=== PATIENT | male | born 1945 | race Caucasian/White ===

== ENCOUNTER 2018-05-31 07:34 | Observation (INO) | payer MEDICARE, OTHER ==
[2018-05-30 15:31] LABS: BASOPHILS # (AUTO) 0.1 (0.0-0.1); BASOPHILS % 0.8 % (0.0-1.0); EOSINOPHILS # (AUTO) 0.1 (0.0-0.4); HEMATOCRIT 39.3 % (38.2-49.6); HEMOGLOBIN 12.6 g/dL (14.0-18.0); LYMPHOCYTES # (AUTO) 2.3 (1.0-3.2); LYMPHOCYTES % 28.2 % (18.0-39.1); MEAN CORPUSCULAR HEMOGLOBIN 28.6 pg (28-32); MEAN CORPUSCULAR HGB CONC 32.1 g/dL (31-35); MEAN CORPUSCULAR VOLUME 89.3 fL (81-99); MONOCYTES # (AUTO) 0.9 (0.2-0.8); MONOCYTES % 11.1 % (4.4-11.3); NEUTROPHILS # (AUTO) 4.7 (2.1-6.9); NEUTROPHILS % 58.4 % (38.7-80.0); PLATELET COUNT 256 x10e3/uL (140-360); RED CELL DISTRIBUTION WIDTH 17.6 % (11.7-14.4)
[2018-05-30 15:50] LABS: ALANINE AMINOTRANSFERASE 25 IU/L (0-55); ALBUMIN 3.9 g/dL (3.5-5.0); ALKALINE PHOSPHATASE 109 IU/L (40-150); ANION GAP 14.6 mmol/L (8-16); BLOOD UREA NITROGEN 19 mg/dL (7-26); BUN/CREATININE RATIO 19 (6-25); CALCIUM 9.8 mg/dL (8.4-10.2); CARBON DIOXIDE 29 mmol/L (22-29); CHLORIDE 97 mmol/L (98-107); CREATININE, SERUM 1.01 mg/dL (0.72-1.25); EST GLOMERULAR FILTRATION RATE > 60 ML/MIN (60-); GLUCOSE 98 mg/dL (74-118); POTASSIUM 4.6 mmol/L (3.5-5.1); SODIUM 136 mmol/L (136-145)
[~2018-05-31] VITALS: Ht 177.8 cm; Wt 69.4 kg
[2018-05-31] VITALS (13 sets, daily range): BP systolic 137–183; BP diastolic 59–88
[~2018-05-31 07:34] MED LIST: ADVAIR 100-501 EACH; ALPHAGAN P5 ML OU; AMOXICILLIN875 MG PO; ASPIRIN81 MG PO; CALCIUM CARBONATE PO; CLARINEX5 MG PO; DIGOXIN125 MCG PO; DOCUSATE SODIU100 MG PO; GLAUCOMA EYE DROPS; GUAIFENESIN PO; LORATADINE10 MG PO; LUMIGAN2.5 M1 OU; MECLIZINE HCL12.5 MG PO; METFORMIN HCL500 MG PO; METOPROLOL TART25 MG PO; MUCINEX600 MG PO; OMEPRAZOLE40 MG PO; PRAVASTATIN SOD20 MG PO; SENOKOT8.6 MG PO; THERA-TABS1 EACH PO; TIMOLOL MALEATE10 M1 OU; ULTRAM 50MG50 MG PO
[2018-05-31] MEDS ORDERED: METOPROLOL TART25 MG PO (09:53)
[2018-05-31] MEDS ORDERED: THERA-TABS1 EACH PO (09:53)
[2018-05-31] MEDS ORDERED: ELIQUIS 5 MG TABLET PO (09:53)
[2018-05-31] MEDS ORDERED: LUMIGAN2.5 M1 OP (09:53)
[2018-05-31] MEDS ORDERED: OSCAL PO (09:53)
[2018-05-31] MEDS ORDERED: TOBRADEX EYE O3.5 GM OP (09:53)
[2018-05-31] MEDS ORDERED: LATANOPROST2.5 ML OP (09:53)
[2018-05-31] MEDS ORDERED: TIMOLOL MALEATE10 ML OP (09:53)
[2018-05-31] MEDS ORDERED: BRIMONIDINE TART5 ML OP (09:53)
[2018-05-31] MEDS ORDERED: FENTANYL CITRATE/PF 100MCG/2 ML INJ ONE (11:01)
[2018-05-31] MEDS ORDERED: MIDAZOLAM HCL 2 MG/2 ML VIAL ONE (11:01)
[2018-05-31] MEDS ORDERED: SODIUM CHLORIDE 0.9% 1000ML 1,000 ML ONE (11:02)
[2018-05-31] MEDS ORDERED: IOPAMIDOL 370 MG/ML 200 ML INFUS..BTL INJ ONE (11:02)
[2018-05-31] MEDS ORDERED: LIDOCAINE HCL 2% LOCAL 20 ML VIAL ONE (11:02)
[2018-05-31] MEDS ORDERED: HEPARIN SOD/SOD CHLORIDE 2,000 ML ONE (11:02)
[2018-05-31] MEDS ORDERED: SODIUM CHLORIDE FLUSH 10 ML SYR INJ PRN (15:15)
[2018-05-31] MEDS ORDERED: TRAMADOL HCL 50 MG TAB PO PRN (16:45)
[2018-05-31] MEDS ORDERED: DOCUSATE SODIUM 100 MG CAP PO SCH (16:45)
[2018-05-31] MEDS ORDERED: SENNOSIDES 8.6 MG TAB PO PRN ×2 (16:45)
[2018-05-31] MEDS ORDERED: GUAIFENESIN 600 MG TAB PO PRN ×2 (16:45)
[2018-05-31] MEDS ORDERED: DOCUSATE SODIUM 100 MG CAP PO PRN (16:45)
[2018-05-31] MEDS: BRIMONIDINE TARTRATE (OPTH) 5 ML LIQD OP SCH (17:00)
[2018-05-31] MEDS: APIXABAN 5 MG TABLET PO SCH (17:00)
[2018-05-31] MEDS ORDERED: ELIQUIS 5 MG PO SCH (17:00)
[2018-05-31] MEDS: TIMOLOL MALEATE(OPTHALMIC) 1 EA BTL OP SCH (17:00)
[2018-05-31] MEDS: METOPROLOL TARTRATE 25 MG TAB PO SCH (17:49)
[2018-05-31] MEDS: METFORMIN HCL 500 MG TAB PO SCH (17:49)
[2018-05-31] MEDS: TOBRAMYCIN/DEXAMETHASONE(OPTH) 3.5 GM TUBE OP SCH ×2 (17:50→23:54)
--- NOTE | 2018-05-31 19:09 | Progress Note ---
DATE: May 31, 2018 CARDIOLOGY PROGRESS NOTE INCOMPLETE REPORT - CANCELLED Job#: [id number] EV
[2018-05-31] MEDS: BIMATOPROST(OPTH) 2.5 ML BOTTLE OP SCH (21:42)
[2018-05-31] MEDS: PRAVASTATIN 20 MG TAB PO SCH (21:42)
[2018-05-31] MEDS: LATANOPROST(OPTH) 2.5 ML BTL OP SCH (21:42)
[2018-06-01] VITALS (8 sets, daily range): BP systolic 110–143; BP diastolic 54–66
[2018-06-01 05:20] LABS: BASOPHILS % 0.4 % (0.0-1.0); EOSINOPHILS # (AUTO) 0.1 (0.0-0.4); EOSINOPHILS % 1.3 % (0.0-6.0); HEMATOCRIT 37.3 % (38.2-49.6); HEMOGLOBIN 12.4 g/dL (14.0-18.0); LYMPHOCYTES # (AUTO) 1.6 (1.0-3.2); LYMPHOCYTES % 15.1 % (18.0-39.1); MEAN CORPUSCULAR HEMOGLOBIN 29.1 pg (28-32); MEAN CORPUSCULAR HGB CONC 33.2 g/dL (31-35); MEAN CORPUSCULAR VOLUME 87.6 fL (81-99); MONOCYTES # (AUTO) 0.8 (0.2-0.8); MONOCYTES % 7.2 % (4.4-11.3); NEUTROPHILS # (AUTO) 7.9 (2.1-6.9); NEUTROPHILS % 75.7 % (38.7-80.0); PLATELET COUNT 240 x10e3/uL (140-360); RED BLOOD COUNT 4.26 x10e6/uL (4.3-5.7); RED CELL DISTRIBUTION WIDTH 17.5 % (11.7-14.4)
[2018-06-01 05:37] LABS: ANION GAP 14.5 mmol/L (8-16); BLOOD UREA NITROGEN 17 mg/dL (7-26); BUN/CREATININE RATIO 20 (6-25); CALCIUM 9.1 mg/dL (8.4-10.2); CARBON DIOXIDE 25 mmol/L (22-29); CHLORIDE 103 mmol/L (98-107); CREATININE, SERUM 0.86 mg/dL (0.72-1.25); EST GLOMERULAR FILTRATION RATE > 60 ML/MIN (60-); GLUCOSE 125 mg/dL (74-118); POTASSIUM 4.5 mmol/L (3.5-5.1); SODIUM 138 mmol/L (136-145)
[2018-06-01] MEDS: TOBRAMYCIN/DEXAMETHASONE(OPTH) 3.5 GM TUBE OP SCH ×3 (05:46→18:41)
[2018-06-01] MEDS: APIXABAN 5 MG TABLET PO SCH ×2 (09:00→17:00)
[2018-06-01] MEDS: MULTIVITAMINS/MINERALS TAB PO SCH (09:00)
[2018-06-01] MEDS: BRIMONIDINE TARTRATE (OPTH) 5 ML LIQD OP SCH ×2 (09:00→17:00)
[2018-06-01] MEDS ORDERED: CALCIUM CARBONATE 600 MG PO SCH (09:00)
[2018-06-01] MEDS: DIGOXIN 0.125 MG TAB PO SCH (09:00)
[2018-06-01] MEDS: TIMOLOL MALEATE(OPTHALMIC) 1 EA BTL OP SCH ×2 (09:00→17:00)
[2018-06-01] MEDS ORDERED: OSCAL PO SCH (09:00)
[2018-06-01] MEDS: METOPROLOL TARTRATE 25 MG TAB PO SCH ×2 (09:00→17:00)
[2018-06-01] MEDS: LORATADINE 10 MG TAB PO SCH (09:00)
[2018-06-01] MEDS ORDERED: MULTIVITAMINS THERAPEUTIC PO SCH (09:00)
[2018-06-01] MEDS: OYST-CAL-D 500MG TABLET PO SCH (09:00)
[2018-06-01] MEDS: METFORMIN HCL 500 MG TAB PO SCH ×2 (09:15→17:00)
--- NOTE | 2018-06-01 12:02 | Progress Note ---
DATE: June 01, 2018 CARDIOLOGY PROGRESS NOTE SUBJECTIVE: Patient denies chest pain or shortness of breath. He is n.p.o. for defibrillator placement later this afternoon. OBJECTIVE: VITAL SIGNS: Temperature 97.3 degrees, pulse 68, respiratory rate 18, blood pressure 139/63, oxygen saturation is 95% on room air. GENERAL: Elderly man. No acute distress. Awake and alert. LUNGS: Clear to auscultation bilaterally. No wheezes or crackles. CARDIOVASCULAR: Normal rate, regular rhythm. A 2/6 systolic murmur at the left sternal border. ABDOMEN: Soft, nontender. EXTREMITIES: No edema. CARDIAC MEDICATIONS: 1. Apixaban 5 mg p.o. b.i.d. 2. Metoprolol tartrate 25 p.o. b.i.d. 3. Digoxin 0.125 mg p.o. daily. LABS: WBC 10.49, hemoglobin 12.4, hematocrit 37.3, platelets 240. Sodium 138, potassium 4.5, chloride 103, CO2 25, BUN 17, creatinine 0.86. Telemetry: AV paced. IMPRESSION: 1. Coronary artery disease. 2. Chronic systolic heart failure. 3. Paroxysmal atrial fibrillation. 4. Hypertension. 5. Diabetes mellitus. RECOMMENDATIONS: Continue current cardiac medications. Patient is scheduled for ICD implantation later today. He will need to follow up with Dr. Sotelo as an outpatient for staged revascularization of the RCA. Job#: [id number] IL
[2018-06-01] MEDS ORDERED: MIDAZOLAM HCL 2 MG/2 ML VIAL ONE (16:22)
[2018-06-01] MEDS ORDERED: BACITRACIN 50,000 UNIT VIAL ONE (16:23)
[2018-06-01] MEDS ORDERED: FENTANYL CITRATE/PF 100MCG/2 ML INJ ONE (16:23)
[2018-06-01] MEDS ORDERED: SODIUM CHLORIDE 0.9% 500ML 500 ML ONE (16:24)
[2018-06-01] MEDS ORDERED: LIDOCAINE HCL 2% LOCAL 20 ML VIAL ONE (16:24)
[2018-06-01] MEDS ORDERED: SODIUM CHLORIDE 0.9% 1000ML 2,000 ML ONE (16:24)
[2018-06-01] MEDS ORDERED: VANCOMYCIN 1GM/NS 250 ML 250 ML ONE (16:25)
[2018-06-01] MEDS ORDERED: ACETAMINOPHEN 325 MG TAB PO PRN (18:30)
--- NOTE | 2018-06-01 19:05 | Diagnostic Imaging Report ---
Examination: Single AP view of the chest. COMPARISON: AP chest 11/08/2016 INDICATION: Status post pacemaker placement IMPRESSION: 1. Lines and Tubes: Left upper chest multilead cardiac device with distal tips projecting in the right atrium, right ventricle and coronary sinus 2. Hypoinflated lungs. Minimal bibasilar atelectasis. No consolidation or effusion. 3. Cardiomediastinal silhouette is normal. Mild central venous congestion. 4. No acute bony abnormalities. Marked generalized osteopenia Signed by: Dr. Steven Mayer M.D. on 06/01/2018 7:02 PM
--- NOTE | 2018-06-01 20:45 | Operative Report ---
DATE OF PROCEDURE: May 31, 2018 INDICATIONS: Congestive heart failure. PROCEDURES PERFORMED: 1. Left heart catheterization, selective coronary angiography. 1. Deployment of right groin Mynx closure device. COMPLICATIONS: None. BLOOD LOSS: 5 mL. RECOMMENDATIONS: AICD placement for primary prevention of sudden cardiac , followed by reassessment of ejection fraction. Eventual right coronary artery intervention is indicated. Access obtained in the right femoral artery. A 6-Swedish sheath was placed. Diagnostic coronary angiogram revealed widely patent left main. Left anterior descending, diagonal, obtuse marginal and circumflex arteries with less than 10% luminal stenosis. Proximal right coronary artery 70% stenosis, large vessel, dominant. LV ejection fraction 30%. Right groin repaired using Mynx closure device. Patient was admitted to the hospital for AICD placement. Job#: [id number] EV
[2018-06-01] MEDS: BIMATOPROST(OPTH) 2.5 ML BOTTLE OP SCH (21:52)
[2018-06-01] MEDS: LATANOPROST(OPTH) 2.5 ML BTL OP SCH (21:53)
[2018-06-01] MEDS: PRAVASTATIN 20 MG TAB PO SCH (21:53)
--- NOTE | 2018-06-01 22:10 | Operative Report ---
DATE OF PROCEDURE: 06/01/2018. REFERRING PHYSICIAN: Dr. Sotelo PREPROCEDURE DIAGNOSES 1. 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 2. Congestive heart failure class III. 3. Complete heart block. 4. 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 POSTPROCEDURE DIAGNOSES 1. 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 2. Congestive heart failure class III. 3. Complete heart block. 4. 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 ESTIMATED BLOOD LOSS: 5 mL. COMPLICATIONS: None. PROCEDURES PERFORMED 1. Upgrade to biventricular cardiac defibrillator. 2. Moderate sedation. Moderate conscious sedation was provided under moderate supervision by a sedation trained nurse. Sedation approximate time 45 minutes, Versed and fentanyl. There were no complications. See sedation form for details. DESCRIPTION OF PROCEDURE: After informed consent was obtained. Patient was brought to the electrophysiology laboratory in a fasting, nonsedated state. His chest was prepped and draped in the usual sterile fashion. Moderate sedation, prophylactic antibiotic were given. Lidocaine 1% was used as local anesthetic and a 3-cm skin incision was made in the left subclavicular area over the previous device. Electrocautery and sharp and blunt dissection were used to reach the previous device and this device was freed out of the pocket. Vascular access was obtained x2 in the left axillary vein using the modified Seldinger technique under fluoroscopic guidance. The 6-Omani and 9.5-Omani sheaths were placed. The ventricular lead advanced to the RV apex. R-wave 8.5, pacing 0.9 at 0.5, impedance 653. Coronary sinus was cannulated using AL-2 catheter and Wholey wire. Coronary sinus angiogram demonstrated a good posterolateral branch, successfully cannulated. The lead was advanced there. Patient's threshold was 1.5 at 0.5, impedance 956 without phrenic stimulation. Sheaths were removed from the body. Leads were secured to fascia using 0-silk. Pocket was irrigated with antibiotic solution using the pulse cte teacher. Hemostasis was meticulous. Leads were connected to the device and also, the atrial lead was disconnected from the old device and connected to this new device. The old right ventricular lead was disconnected from the old device and cut and kept in the pocket. Entire new ICD system was placed in the pocket. Pocket was irrigated with antibiotic solution using a pulse cte teacher. The incision was closed using Vicryl and Dermabond. Patient tolerated the procedure well. Procedure was deemed complete. SUMMARY OF HARDWARE IMPLANTED 1. The new defibrillator is Damascus xAd, model #[id number], [id number]. 2. The new right ventricular lead is [employer] CO292, [id number]. 3. The left ventricular lead is [employer] 4674, [id number]. 4. The old atrial lead was used with the new device. IMPRESSIONS 1. Successful upgrade to biventricular cardiac defibrillator via left axillary vein. 2. The old atrial lead was connected to the new device. 3. The old right ventricular pace sense lead was abandoned and kept in the pocket. PLAN 1. Routine postop monitoring on telemetry bed. 2. Chest x-ray. 3. Follow up in 2 weeks. Job#: [id number] CQ MTDMercedes
--- NOTE | 2018-06-01 23:54 | Consultation ---
DATE OF CONSULTATION: June 01, 2018 REFERRING PHYSICIAN: Dr. Sotelo. REASON FOR CONSULTATION: Cardiomyopathy. Consider upgrade to ICD. HISTORY OF PRESENT ILLNESS: This is a 72-year-old gentleman with a history of complete heart block, history of symptomatic bradycardia, status post dual chamber pacemaker placement. He is pacemaker dependent, who has developed cardiomyopathy with ejection fraction 30% to 35%. He underwent a nuclear stress test that demonstrated, ejection fraction of 35%, has been refractory to medical therapy associated to increased shortness of breath with minimal activity. He has congestive heart failure class III, suspecting ventricular paced induced cardiomyopathy, underwent heart catheterization demonstrating no significant indication for any coronary intervention. We were consulted to consider an upgrade. No history of syncope. No palpitations. REVIEW OF SYSTEMS CONSTITUTIONAL: Negative. CARDIOVASCULAR: As per HPI. RESPIRATORY: Negative. GASTROINTESTINAL: Negative. GENITOURINARY: Negative. MUSCULOSKELETAL: Negative. EYES: Negative. ENT: Negative. ALLERGY AND IMMUNOLOGY: Negative. PSYCHIATRIC: Negative. PAST MEDICAL HISTORY: Hypertension, cardiomyopathy, complete heart block. PAST SURGICAL HISTORY: Pacemaker. FAMILY HISTORY: No premature coronary artery disease. SOCIAL HISTORY: No smoking or alcohol. PHYSICAL EXAMINATION VITAL SIGNS: Blood pressure 138/60, pulse 60, respirations 20, O2 sats 98%. GENERAL: No acute distress. HEENT: Moist mucous membranes. CARDIOVASCULAR: Regular. RESPIRATORY: Clear. ABDOMEN: Soft, nontender. MUSCULOSKELETAL: 2+ distal pulses. NEUROLOGICAL: No focal deficits. Normal range of motion in all 4 extremities. SKIN: No lesions. PSYCHIATRIC: Normal thought process. EKG: Atrial paced, ventricular paced. IMPRESSION 1. 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 2. Congestive heart failure class III. 3. Complete heart block. 4. Dual-chamber pacemaker in place. The patient is pacemaker dependent. RECOMMENDATIONS: Discussed with the patient in detail. He will benefit from upgrade to LOG HANDLER; due to the ejection fraction is low, will be LOG HANDLER-D. This procedure was explained in detail. Will benefit from this. The patient voices understanding and wishes to proceed. We will plan for upgrade to biventricular cardiac defibrillator. Thank you for letting us participate in Mr. Fuller's healthcare. Job#: [id number] GE
[2018-06-02] VITALS (7 sets, daily range): BP systolic 113–152; BP diastolic 56–68
[2018-06-02] MEDS: TOBRAMYCIN/DEXAMETHASONE(OPTH) 3.5 GM TUBE OP SCH ×4 (00:45→17:42)
[2018-06-02] MEDS: METFORMIN HCL 500 MG TAB PO SCH ×2 (09:00→09:41)
[2018-06-02] MEDS: OYST-CAL-D 500MG TABLET PO SCH (09:28)
[2018-06-02] MEDS: LORATADINE 10 MG TAB PO SCH (09:41)
[2018-06-02] MEDS: DIGOXIN 0.125 MG TAB PO SCH (09:41)
[2018-06-02] MEDS: MULTIVITAMINS/MINERALS TAB PO SCH (09:41)
[2018-06-02] MEDS: METOPROLOL TARTRATE 25 MG TAB PO SCH ×2 (09:42→17:46)
[2018-06-02] MEDS: APIXABAN 5 MG TABLET PO SCH ×2 (09:42→17:48)
[2018-06-02] MEDS: TIMOLOL MALEATE(OPTHALMIC) 1 EA BTL OP SCH ×2 (09:45→17:45)
[2018-06-02] MEDS: BRIMONIDINE TARTRATE (OPTH) 5 ML LIQD OP SCH ×2 (09:45→17:45)
[2018-06-02 10:29] LABS: ANION GAP 16.4 mmol/L (8-16); BLOOD UREA NITROGEN 22 mg/dL (7-26); BUN/CREATININE RATIO 21 (6-25); CALCIUM 9.4 mg/dL (8.4-10.2); CARBON DIOXIDE 25 mmol/L (22-29); CHLORIDE 100 mmol/L (98-107); CREATININE, SERUM 1.07 mg/dL (0.72-1.25); EST GLOMERULAR FILTRATION RATE > 60 ML/MIN (60-); GLUCOSE 291 mg/dL (74-118); POTASSIUM 4.4 mmol/L (3.5-5.1); SODIUM 137 mmol/L (136-145)
[2018-06-02] MEDS ORDERED: FUROSEMIDE INJ 10 MG/ML 2 ML VIAL IV SCH (10:30)
--- NOTE | 2018-06-02 10:40 | Progress Note ---
DATE: June 02, 2018 CARDIOLOGY PROGRESS NOTE SUBJECTIVE: The patient denies chest pain or shortness of breath. He underwent upgrade to Bi-V ICD by Dr. Garces yesterday. OBJECTIVE VITAL SIGNS: Temperature 95 degrees, pulse 82, respiratory rate 18, blood pressure 152/68, and oxygen saturation 98%. GENERAL: Elderly man. No acute distress. Awake and alert. LUNGS: Clear to auscultation bilaterally. No wheezes or crackles. CARDIOVASCULAR: Normal rate, regular rhythm. A 2/6 systolic murmur at the left sternal border. ABDOMEN: Soft, nontender. EXTREMITIES: No edema. LABS: Pending for today. Chest x-ray: Left upper chest multilead cardiac device with distal tips projecting into the right atrium, right ventricle and coronary sinus; hypoinflated lungs; minimal bibasilar atelectasis. No consolidation or effusion. Cardiomediastinal silhouette is normal. Mild central venous congestion. No acute bony abnormalities. Marked generalized osteopenia. Telemetry: V paced. IMPRESSIONS 1. Coronary artery disease. 2. Chronic systolic heart failure. 3. Paroxysmal atrial fibrillation. 4. Hypertension. 5. Diabetes mellitus. 6. Hypertension. RECOMMENDATIONS: Cardiac catheterization demonstrated 70% stenosis of the proximal RCA. Plan for staged revascularization as an outpatient. Patient is status post bi-V ICD upgrade. Start patient on minocycline. ICD interrogation revealed normal function this morning. Chest x-ray suggests patient is volume overloaded. Given central venous congestion, we will start patient on diuretics and obtain labs. Physical therapy evaluation. He will likely need a brief stay for physical therapy prior to discharge home. Job#: [id number] MTDD
[2018-06-02] MEDS: MINOCYCLINE HCL 50 MG CAP PO SCH ×2 (12:10→21:07)
[2018-06-02] MEDS ORDERED: CEFTRIAXONE SOD 1 GM VIAL IM ONE (17:45)
[2018-06-02] MEDS ORDERED: CEFTRIAXONE SOD 1 GM VIAL IV SCH (17:45)
[2018-06-02] MEDS ORDERED: WATER STERILE 10 ML VIAL INJ NR (18:15)
[2018-06-02] MEDS: PRAVASTATIN 20 MG TAB PO SCH (21:07)
[2018-06-02] MEDS: LATANOPROST(OPTH) 2.5 ML BTL OP SCH (21:07)
[2018-06-02] MEDS: BIMATOPROST(OPTH) 2.5 ML BOTTLE OP SCH (21:07)
[2018-06-03] MEDS ORDERED: FUROSEMIDE INJ 10 MG/ML 4 ML VIAL IV SCH (09:00)
[2018-06-03] MEDS ORDERED: FUROSEMIDE INJ 10 MG/ML 2 ML VIAL IV SCH (09:00)
[2018-06-03] MEDS ORDERED: CEFTRIAXONE SOD 1 GM VIAL IV SCH ×2 (18:00)
--- NOTE | 2018-06-10 15:24 | Discharge Summary ---
DISCHARGE DIAGNOSES 1. [id number] systolic heart failure status post automatic implantable cardioverter-defibrillator placement. 2. Debility. Mr. Fuller was admitted for coronary angiography and congestive heart failure. He had progressive shortness of breath. He underwent coronary angiography with 70% right coronary artery stenosis. He underwent an upgrade of his pacemaker to biventricular AICD placement by Dr. Garces. Subsequently, he was transferred to [facility]. DISCHARGE CONDITION: Stable. DISCHARGE DISPOSITION: Transfer to long-term acute care. DISCHARGE MEDICATIONS: Please see NOV. RAMIRO MENDOZA MD Job#: [id number]
--- OUTSIDE RECORDS SUMMARY | 2018-06-21 06:36 | XMS REPORT | Clinical Summary ---
Author Author [facility]ISH [facility] Address Unknown Phone Unavailable Care Team Providers Care Latexer Name Role Phone PCP Unavailable Allergies Active Allergy Reactions Severity Noted Date Comments Codeine 02/04/2016 Sulfa (Sulfonamide 02/04/2016 Antibiotics) Current Medications Prescription Sig. Disp. Refills Start End Date Status Date digoxin (LANOXIN) 0.125 Take 125 mcg by mouth Active MG tablet daily. metFORMIN (GLUCOPHAGE) Take 500 mg by mouth 2 Active 500 MG tablet (two) times daily with breakfast and dinner. metoprolol (LOPRESSOR) 25 Take 25 mg by mouth 2 Active MG tablet (two) times daily. aspirin 81 MG EC tablet Take 81 mg by mouth Active daily. pravastatin (PRAVACHOL) Take 20 mg by mouth Active 20 MG tablet daily. multivitamin per tablet Take 1 tablet by mouth Active daily. docusate sodium (COLACE) Take 100 mg by mouth Active 100 MG capsule daily. guaiFENesin (MUCINEX) 600 Take 1,200 mg by mouth 2 Active mg 12 hr (two) times daily :PRN . tabletIndications: Cold Symptoms Active Problems Problem Noted Date Ischemic hepatitis 02/08/2016 Osteoporotic fracture of left hip, initial encounter ([facility]) 02/05/2016 Closed displaced fracture of left acromial process, initial encounter 02/04/2016 Overview: UPDATED BY ICD10 SNOMED/IMO UPDATES Diabetes mellitus, type 2 (HCC) 02/04/2016 Essential hypertension 02/04/2016 Hyperlipidemia 02/04/2016 Left shoulder pain 02/04/2016 Anemia 02/04/2016 Lower urinary tract infectious disease 02/04/2016 Overview: UPDATED BY ICD10 SNOMED/IMO UPDATES Leukocytosis (leucocytosis) 02/04/2016 Troponin level elevated 02/04/2016 Closed displaced fracture of anterior column of left acetabulum, initial 02/04/2016 encounter ([facility]) Overview: UPDATED BY ICD10 SNOMED/IMO UPDATES Social History Tobacco Use Types Packs/Day Years Used Date Former Smoker Cigarettes Smokeless Tobacco: Former Quit: User 09/06/1989 Alcohol Use Drinks/Week oz/Week Comments No Sex Assigned at Date Recorded Not on file Last Filed Vital Signs Not on file Plan of Treatment Not on file Implants Implanted Type Area Lead Supply Worker Device Expiration Model / Identifier Date Serial / Lot Washer Joints Left: HELENA 08/05/2020 [id number] / Implanted: Qty: 1 on 02/05/2016 by Kobi Gonzalez MD [id number] Asnis Iii Cannulated Screw Joints Left: HELENA 10/05/2018 [id number] / Implanted: Qty: 1 on 02/05/2016 by Kobi Gonzalez MD [id number] Asnis Iii Cannulated Screw Left: HELENA 01/04/2020 [id number] / [id number] Pelvis / Implanted: Qty: 1 on 02/05/2016 by [id number] Kobi Santacruz MD Washer Left: HELENA 01/03/2021 [id number] / Implanted: Qty: 1 on 02/05/2016 by Kobi Gonzalez MD [id number] Results Not on fileafter 05/30/2017
--- OUTSIDE RECORDS SUMMARY | 2018-06-21 06:44 | XMS REPORT | Clinical Summary ---
Author Author IRISH [facility]St[facility] Address Unknown Phone Unavailable Care Team Providers Care Crown And Bridge Technician Name Role Phone PCP Unavailable Allergies Active [...] Osteoporotic fracture of left hip, [facility] encounter [facility] 02/05/2016 Closed displaced fracture of left acromial [...] column of left acetabulum, initial 02/04/2016 encounter ([facility]) Overview: UPDATED BY ICD10 SNOMED/IMO UPDATES Social History Tobacco Use Types Packs/Day Years Used Date Former Smoker Cigarettes Smokeless Tobacco: Former Quit: User 09/06/1989 Alcohol Use Drinks/Week oz/Week Comments No Sex Assigned at Date Recorded Not on file Last Filed Vital Signs Not on file Plan of Treatment Not on file Implants Implanted Type Area Production Hardener Device Expiration Model / Identifier Date Serial / Lot Washer Joints Left: HELENA 08/05/2020 [id number] / Implanted: Qty: 1 on 02/05/2016 by Kobi Gonzalez MD [id number] Asnis Iii Cannulated Screw Joints Left: HELENA 10/05/2018 [id number] / Implanted: Qty: 1 on 02/05/2016 by Kobi Gonzalez MD [id number] Asnis Iii Cannulated Screw Left: HELENA 01/04/2020 [id number] / [id number] Pelvis / Implanted: Qty: 1 on 02/05/2016 by [id number] Kobi Santacruz MD Washer Left: HELENA 01/03/2021 [id number] / Implanted: Qty: 1 on 02/05/2016 by Kobi Gonzalez MD [id number] Results Not on fileafter 05/30/2017
== END 2018-06-02 22:01 ==
LOC: CATH LAB 07:34 → PACU V 12:10 → MED/SURG 14:35
PROVIDERS: ADMIT Internal Medicine Interventional Cardiology; ATTEND Internal Medicine Interventional Cardiology
DX: I42.0 Dilated cardiomyopathy (principal); I48.0 Paroxysmal atrial fibrillation; I25.118 Atherosclerotic heart disease of native coronary artery with other forms of angina pectoris; I11.0 Hypertensive heart disease with heart failure; I50.22 Chronic systolic (congestive) heart failure; E11.9 Type 2 diabetes mellitus without complications; I44.2 Atrioventricular block, complete; Z95.0 Presence of cardiac pacemaker; Z79.01 Long term (current) use of anticoagulants; Z79.84 Long term (current) use of oral hypoglycemic drugs; Z88.5 Allergy status to narcotic agent; Z88.2 Allergy status to sulfonamides
CPT/HCPCS: 33225; 33230; 33233; 36415 ×3; 71045; 80048 ×2; 80053; 80162; 82948; 83880; 85025 ×2; 93454; 97116; 97162; C1769 ×2; C1777; C1882 ×2; C1900; G0378 ×3; G8978; G8979; J0696; J1940; J2001 ×2; J2250 ×2; J3370; J7030 ×2; J7040; Q9967; 33224; 33249; C1887

== ENCOUNTER 2018-08-02 09:58 | Observation (INO) | payer MEDICARE, OTHER ==
[~2018-08-02] VITALS: Ht 177.8 cm; Wt 70.9 kg
[2018-08-02] VITALS (10 sets, daily range): BP systolic 105–151; BP diastolic 51–89
[~2018-08-02 09:58] MED LIST changes: +BRIMONIDINE TART5 ML OP; +ELIQUIS 5 MG TABLET PO; +LATANOPROST2.5 ML OP; +LUMIGAN2.5 M1 OP; +OSCAL PO; +TIMOLOL MALEATE10 ML OP; +TOBRADEX EYE O3.5 GM OP
--- OUTSIDE RECORDS SUMMARY | 2018-08-02 10:01 | XMS REPORT | Clinical Summary ---
Author Author IRISH [facility] Address Unknown Phone Unavailable Care Team Providers Care Pulmonology Physician Name Role Phone PCP Unavailable Allergies Comments Active Allergy Reactions Severity Noted Date Codeine 02/04/2016 Sulfa (Sulfonamide 02/04/2016 Antibiotics) Medications End Date Status Medication Sig Dispensed Refills Start Date Active digoxin (LANOXIN) 0.125 Take 125 mcg 0 MG tablet by mouth daily. Active metFORMIN (GLUCOPHAGE) Take 500 mg 0 500 MG tablet by mouth 2 (two) times daily with breakfast and dinner. Active metoprolol (LOPRESSOR) 25 Take 25 mg by 0 MG tablet mouth 2 (two) times daily. Active aspirin 81 MG EC tablet Take 81 mg by 0 mouth daily. Active pravastatin (PRAVACHOL) Take 20 mg by 0 20 MG tablet mouth daily. Active multivitamin per tablet Take 1 tablet 0 by mouth daily. Active docusate sodium (COLACE) Take 100 mg 0 100 MG capsule by mouth daily. Active guaiFENesin (MUCINEX) 600 Take 1,200 mg 0 mg 12 hr by mouth 2 tabletIndications: Cold (two) times Symptoms daily :PRN . Active Problems Problem Noted Date Ischemic hepatitis 02/08/2016 Osteoporotic fracture of left hip, initial encounter 02/05/2016 Closed displaced fracture of left acromial process, initial encounter 02/04/2016 Overview: UPDATED BY ICD10 SNOMED/IMO UPDATES Diabetes mellitus, type 2 02/04/2016 Essential hypertension 02/04/2016 Hyperlipidemia 02/04/2016 Left shoulder pain 02/04/2016 Anemia 02/04/2016 Lower urinary tract infectious disease 02/04/2016 Overview: UPDATED BY ICD10 SNOMED/IMO UPDATES Leukocytosis (leucocytosis) 02/04/2016 Troponin level elevated 02/04/2016 Closed displaced fracture of anterior column of left acetabulum, initial 02/04/2016 encounter Overview: UPDATED BY ICD10 SNOMED/IMO UPDATES Social History Date Tobacco Use Types Packs/Day Years Used Former Smoker Cigarettes Smokeless Tobacco: Former Quit: 09/06/1989 User Alcohol Use Drinks/Week oz/Week Comments No Sex Assigned at Date Recorded Not on file Industry Job Start Date Occupation Not on file Not on file Not on file Travel End Travel History Travel Start No recent travel history available. Last Filed Vital Signs Not on file Plan of Treatment Not on file Implants Device Identifier Shelf Expiration Date Model / Serial / Lot Implanted Type Area Manufactur er 08/05/2020 [id number] / / [id number] Washer Joints Left: Pelvis HELENA Implanted: Qty: 1 on 02/05/2016 by Kobi Santacruz MD 10/05/2018 [id number] / / [id number] Asnis Iii Cannulated Screw Joints Left: Pelvis HELENA Implanted: Qty: 1 on 02/05/2016 by Kobi Santacruz MD 01/04/2020 [id number] / / [id number] Asnis Iii Cannulated Screw Left: Pelvis HELENA [id number] Implanted: Qty: 1 on 02/05/2016 by Kobi Santacruz MD 01/03/2021 [id number] / / [id number] Washer Left: Pelvis HELENA Implanted: Qty: 1 on 02/05/2016 by Kobi Santacruz MD Results Not on fileafter 08/01/2017 Insurance Payer Benefit Subscriber ID Type Phone Address Plan / Group MEDICARE MEDICARE A xxxxxxxxxx Medicare B MCR SUPPLEMENT/INDIVIDUAL GENERIC xxxxxxxxx [facility] MEDICARE SUPPLEMENT Advance Directives For more information, please contact: [facility] [address] [place] [address] Date Inactivated Comments Code Status Date Activated 02/10/2016 8:00 PM Full Code 02/04/2016 8:08 AM This code status was determined by: Patient
--- OUTSIDE RECORDS SUMMARY | 2018-08-02 10:01 | XMS REPORT ---
Author Author [facility] Address Unknown Phone Unavailable Care Team Providers Care Airplane Pilot Name Role Phone RAMIRO MENDOZA Unavailable Unavailable Problems This patient has no known problems. Allergies, Adverse Reactions, Alerts This patient has no known allergies or adverse reactions. Medications This patient has no known medications. Results Test Description Test Time Test Comments Text Results Atomic Results Result Comments CHEST SINGLE (PORTABLE) 2018-06-01 19:00:00 [place] [address] Patient Name: LISETTE FRANKEL JR MR #: [id number] : 1945 Age/Sex: 72/M Req #: [id number] Adm Physician: RAMIRO MENDOZA MD Ordered by: YAJAIRA ROACH MD Report #: [id number] Location: MED/SURG Room/Bed: [facility] Procedure: [id number] DX/CHEST SINGLE (PORTABLE) Exam Date: 06/01/18 Exam Time: 1820 REPORT STATUS: Signed Examination: Single AP view of the chest. COMPARISON: AP chest 11/08/2016 INDICATION: Status post pacemaker placement IMPRESSION: 1. Lines and Tubes: Left upper chest multilead cardiac device with distal tips projecting in the right atrium, right ventricle and coronary sinus 2. Hypoinflated lungs. Minimal bibasilar atelectasis. No consolidation or effusion. 3. Cardiomediastinal silhouette is normal. Mild central venous congestion. 4. No acute bony abnormalities. Marked generalized osteopenia Signed by: Dr. Venkata Mayer M.D. on 06/01/2018 7:02 PM Dictated By: VENKATA MAYER MD 01 Transcribed By: CAROL on 06/01/181901 COPY TO: YAJAIRA ROACH MD
[2018-08-02 10:39] LABS: BASOPHILS # (AUTO) 0.1 (0.0-0.1); EOSINOPHILS # (AUTO) 0.3 (0.0-0.4); HEMATOCRIT 35.4 % (38.2-49.6); HEMOGLOBIN 11.6 g/dL (14.0-18.0); LYMPHOCYTES # (AUTO) 2.2 (1.0-3.2); LYMPHOCYTES % 29.6 % (18.0-39.1); MEAN CORPUSCULAR HEMOGLOBIN 30.9 pg (28-32); MEAN CORPUSCULAR HGB CONC 32.8 g/dL (31-35); MEAN CORPUSCULAR VOLUME 94.1 fL (81-99); MONOCYTES # (AUTO) 0.7 (0.2-0.8); MONOCYTES % 9.5 % (4.4-11.3); NEUTROPHILS % 55.2 % (38.7-80.0); PLATELET COUNT 196 x10e3/uL (140-360); RED BLOOD COUNT 3.76 x10e6/uL (4.3-5.7); RED CELL DISTRIBUTION WIDTH 14.3 % (11.7-14.4)
[2018-08-02 11:08] LABS: ALANINE AMINOTRANSFERASE 20 IU/L (0-55); ALBUMIN 3.7 g/dL (3.5-5.0); ALKALINE PHOSPHATASE 101 IU/L (40-150); ANION GAP 12.1 mmol/L (8-16); BLOOD UREA NITROGEN 24 mg/dL (7-26); BUN/CREATININE RATIO 30 (6-25); CALCIUM 9.8 mg/dL (8.4-10.2); CARBON DIOXIDE 28 mmol/L (22-29); CHLORIDE 104 mmol/L (98-107); CREATININE, SERUM 0.79 mg/dL (0.72-1.25); EST GLOMERULAR FILTRATION RATE > 60 ML/MIN (60-); GLUCOSE 131 mg/dL (74-118); POTASSIUM 4.1 mmol/L (3.5-5.1); SODIUM 140 mmol/L (136-145)
[2018-08-02] MEDS ORDERED: LIPITOR20 MG PO (11:40)
[2018-08-02] MEDS ORDERED: OYST-CAL-500500 MG PO (11:40)
[2018-08-02] MEDS ORDERED: FUROSEMIDE40 MG PO (11:40)
[2018-08-02] MEDS ORDERED: SODIUM CHLORIDE 0.9% 1000ML 1,000 ML ONE ×2 (13:13→14:46)
[2018-08-02] MEDS ORDERED: DIPHENHYDRAMINE HCL 25 MG CAP ONE (13:15)
[2018-08-02] MEDS ORDERED: ALPRAZOLAM 0.5 MG TAB ONE (13:18)
[2018-08-02 13:46] LABS: INR 0.94; PROTHROMBIN TIME 13.4 seconds (11.9-14.5)
[2018-08-02] MEDS ORDERED: FENTANYL CITRATE/PF 100MCG/2 ML INJ ONE (14:46)
[2018-08-02] MEDS ORDERED: HEPARIN SOD/SOD CHLORIDE 2,000 ML ONE (14:46)
[2018-08-02] MEDS ORDERED: IOPAMIDOL 370 MG/ML 200 ML INFUS..BTL INJ ONE ×2 (14:46→15:33)
[2018-08-02] MEDS ORDERED: LIDOCAINE HCL 2% LOCAL 20 ML VIAL ONE (14:46)
[2018-08-02] MEDS ORDERED: MIDAZOLAM HCL 2 MG/2 ML VIAL ONE (14:46)
[2018-08-02] MEDS ORDERED: TICAGRELOR 90 MG TABLET ONE (15:37)
[2018-08-02] MEDS ORDERED: ASPIRIN 325 MG TAB ONE (15:49)
--- NOTE | 2018-08-02 16:15 | NUR ---
1615 received from record label intern [facility] Dr Sotelo. Identifiersx2. Fix RCA-CSI,and [place] and LOAD OUT WORKER. via Mnyx applied at 1550. PPx 4 Pt/DP papable. no oozing or hematoma at dressing site rt groin. . Rt femoral approach. Dr Sotelo spoke with family will observe tonight with tele obsvervation bed which was ordered. Resp shallow and regular 97% Room air. Iv infusing well no s/s infiltration at 75cchr via pump. Pt remains drowsy. Pt has pacer maker 60Hr ,no distress denies Cp or SOB stable
--- NOTE | 2018-08-02 18:00 | NUR ---
1800 report to floor nurse [id number] per Sue , RN pt stable ekg pacer Hr 60 Vs b/p 134/69 60-16 97.6T 99% on room air. CBC,BMP for am and diet tray ordered. Pt remains drowsy and has w/c [facility] [place]. family stephenson id stent and minx id cards as well as copy of Md heart diagram.Copy of med script to be started at facility given to Javi [phone]. Family was requesting phone call on transport back to facility.Pt transported on tele and zoll monitor with laborer carpentry dock nurse Sue on escort and valuables to room.Rt Minx dressing remain dry w/o hematoma or oozing. Iv continues to infuse to arm w/o s/s infiltration at 75hr.
--- OUTSIDE RECORDS SUMMARY | 2018-08-02 18:38 | XMS REPORT | Clinical Summary ---
Author Author IRISH [facility] Address Unknown Phone Unavailable Care Team Providers Care Network Field Engineer Name Role Phone PCP Unavailable Allergies Comments [...] Lot Implanted Type Area Manufactur er 08/05/2020 [id number] / / [id number] Washer Joints Left: Pelvis HELENA Implanted: Qty: 1 on 02/05/2016 by Kobi Santacruz MD 10/05/2018 [id number] / / [id number] Asnis Iii Cannulated Screw Joints Left: Pelvis HELENA Implanted: Qty: 1 on 02/05/2016 by Kobi Santacruz MD 01/04/2020 [id number] / / [id number] Asnis Iii Cannulated Screw Left: Pelvis HELENA [id number] Implanted: Qty: 1 on 02/05/2016 by Kobi Santacruz MD 01/03/2021 [id number] / / [id number] Washer Left: Pelvis HELENA Implanted: Qty: 1 on 02/05/2016 by Kobi Santacruz MD Results Not on fileafter 08/01/2017 Insurance Payer Benefit Subscriber ID Type Phone Address Plan / Group MEDICARE MEDICARE A xxxxxxxxxx Medicare B MCR SUPPLEMENT/INDIVIDUAL GENERIC xxxxxxxxx [facility] MEDICARE SUPPLEMENT Advance Directives For more information, please contact: [facility] [address] [place] [address] Date Inactivated Comments Code Status Date Activated 02/10/2016 8:00 PM Full Code 02/04/2016 8:08 AM This code status was determined by: Patient
[2018-08-03 03:40] VITALS: BP 120/69
[2018-08-03 05:34] LABS: BASOPHILS % 0.2 % (0.0-1.0); EOSINOPHILS % 0.2 % (0.0-6.0); HEMATOCRIT 40.6 % (38.2-49.6); LYMPHOCYTES # (AUTO) 0.8 (1.0-3.2); LYMPHOCYTES % 6.6 % (18.0-39.1); MEAN CORPUSCULAR HEMOGLOBIN 31.1 pg (28-32); MEAN CORPUSCULAR HGB CONC 32.8 g/dL (31-35); MEAN CORPUSCULAR VOLUME 94.9 fL (81-99); MONOCYTES # (AUTO) 0.5 (0.2-0.8); MONOCYTES % 4.2 % (4.4-11.3); NEUTROPHILS # (AUTO) 11.2 (2.1-6.9); NEUTROPHILS % 88.4 % (38.7-80.0); PLATELET COUNT 205 x10e3/uL (140-360); RED BLOOD COUNT 4.28 x10e6/uL (4.3-5.7); RED CELL DISTRIBUTION WIDTH 14.2 % (11.7-14.4)
[2018-08-03 05:57] LABS: HEMOGLOBIN 13.3 g/dL (14.0-18.0)
[2018-08-03 06:23] LABS: ANION GAP 14.5 mmol/L (8-16); BLOOD UREA NITROGEN 23 mg/dL (7-26); BUN/CREATININE RATIO 26 (6-25); CALCIUM 9.2 mg/dL (8.4-10.2); CARBON DIOXIDE 24 mmol/L (22-29); CHLORIDE 104 mmol/L (98-107); CREATININE, SERUM 0.87 mg/dL (0.72-1.25); EST GLOMERULAR FILTRATION RATE > 60 ML/MIN (60-); GLUCOSE 157 mg/dL (74-118); POTASSIUM 4.5 mmol/L (3.5-5.1); SODIUM 138 mmol/L (136-145)
--- NOTE | 2018-08-03 07:30 | NUR ---
Received pt in bed with eyes open. Pt is aaox2 and able to verbalize needs. Denies any pain at this time. Dressing to right groin in place and some old blood noted to dressing. 0 s/s of acute distress noted. Breaths are even and unlabored.
[2018-08-03 08:00] VITALS: BP 101/56
[2018-08-03 09:11] VITALS: BP 101/56
[2018-08-03] MEDS ORDERED: CLOPIDOGREL BISULFATE 75 MG TAB PO SCH (10:30)
[2018-08-03 12:45] VITALS: BP 110/52
--- NOTE | 2018-08-03 12:46 | NUR ---
PT IN OBS STATUS FROM [facility] SIGNED AND ON CHART COPY TO PT PT RETURNING TO [facility] TODAY CHOICE LETTER SIGNED NOTIFIED EARLINE AT [facility] PT TRANSFERING BACK TO ROOM [address] [place] CM CALLED AND NOTIFIED PT'S COUSIN, SAIGE LEWIS OF PT'S RETURN TO [facility] PHONE [phone] HE REQUESTS THAT [facility] AR[facility]ANGE TRANSPORTATION SCHEDULED INFORMATION AND DATA ARCHITECT ANALYST AT 1:30 TODAY WITH [facility] WHEELCHAIR VAN WHEELCHAIR FROM [facility] WILL BE SENT BACK WITH PT RTF INITIATED AND GIVEN TO NURSE WITH NUMBER TO CALL REPORT
--- NOTE | 2018-10-22 23:47 | Operative Report ---
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 PROCEDURES PERFORMED 1. Left heart catheterization, selective coronary angiography. 2. Atherectomy and stent placed in the proximal right coronary artery. COMPLICATIONS: None. RECOMMENDATIONS: Dual antiplatelet therapy. Access obtained in the right femoral artery. A 6-Gambian sheath was placed. Right coronary artery was cannulated using a JR4 6-Gambian guiding catheter. Patient received intravenous heparin and oral Brilinta for anticoagulation. A ViperWire was advanced across the 80% heavily calcified proximal right coronary artery lesion for support. Orbital atherectomy using a CSI device was performed. Balloon angioplasty with a 2.5-mm balloon was performed following which a single 2.75 x 30 mm Resolute [place] drug-eluting stent was deployed, post tied with a 3-mm noncompliant balloon. Excellent end result, 0% residual stenosis, and JORDEN-3 flow. LV end-diastolic pressure was 10. No gradient across the aortic valve on pullback. Right groin repaired using Mynx closure device. Patient observed in the hospital overnight. Job#: [id number] ELIDA
== END 2018-08-03 13:42 ==
LOC: CATH LAB 09:58 → MED/SURG 18:36
PROVIDERS: ADMIT Internal Medicine Interventional Cardiology; ATTEND Internal Medicine Interventional Cardiology
DX: I25.118 Atherosclerotic heart disease of native coronary artery with other forms of angina pectoris (principal); R94.39 Abnormal result of other cardiovascular function study; I11.0 Hypertensive heart disease with heart failure; I50.20 Unspecified systolic (congestive) heart failure; I48.0 Paroxysmal atrial fibrillation; I44.39 Other atrioventricular block; Z95.0 Presence of cardiac pacemaker; H40.9 Unspecified glaucoma; Z98.1 Arthrodesis status; Z79.02 Long term (current) use of antithrombotics/antiplatelets; Z79.84 Long term (current) use of oral hypoglycemic drugs; Z91.81 History of falling; Z87.81 Personal history of (healed) traumatic fracture
CPT/HCPCS: 93458; C9602; 36415; 80048; 80053; 85025; 85610; 92933; C1724; C1725; C1760; C1769; C1874; G0378; J2001; J2250; J7030; Q9967

== ENCOUNTER 2018-08-11 09:37 | Emergency (ER) | payer MEDICARE, OTHER ==
[~2018-08-11] VITALS: Ht 177.8 cm; Wt 70.8 kg
[~2018-08-11 09:37] MED LIST changes: +FUROSEMIDE40 MG PO; +LIPITOR20 MG PO; +OYST-CAL-500500 MG PO
--- OUTSIDE RECORDS SUMMARY | 2018-08-11 09:41 | XMS REPORT | Clinical Summary ---
Author Author IRISH Definition [facility] Address Unknown Phone Unavailable Care Team Providers Care Bridge Engineer Name Role Phone PCP Unavailable Allergies [...] Lot Implanted Type Area Manufactur er 08/05/2020 [id number] / / [id number] Washer Joints Left: Pelvis HELENA Implanted: Qty: 1 on 02/05/2016 by Kobi Santacruz MD 10/05/2018 [id number] / / [id number] [employer] Cannulated Screw Joints Left: Pelvis HELENA Implanted: Qty: 1 on 02/05/2016 by Kobi Santacruz MD 01/04/2020 [id number] / / [id number] [employer] Cannulated Screw Left: Pelvis HELENA [id number] Implanted: Qty: 1 on 02/05/2016 by Kobi Santacruz MD 01/03/2021 [id number] / / [id number] Washer Left: Pelvis HELENA Implanted: Qty: 1 on 02/05/2016 by Kobi Santacruz MD Results Not on fileafter 08/10/2017 Insurance Payer Benefit Subscriber ID Type Phone Address Plan / Group MEDICARE MEDICARE A xxxxxxxxxx Medicare B MCR SUPPLEMENT/INDIVIDUAL GENERIC xxxxxxxxx [facility] MEDICARE SUPPLEMENT Advance Directives For more information, please contact: [facility] [address] [place] [address] Date Inactivated Comments Code Status Date Activated 02/10/2016 8:00 PM Full Code 02/04/2016 8:08 AM This code status was determined by: Patient
[2018-08-11] MEDS ORDERED: OXYMETAZOLINE HCL 0.05% NAS 1 SPRAY BTL ONE (10:15)
[2018-08-11 11:02] VITALS: BP 129/60
== END 2018-08-11 11:45 | disposition home or self-care (01) ==
LOC: ER 09:37
DX: R04.0 Epistaxis (principal); I25.10 Atherosclerotic heart disease of native coronary artery without angina pectoris; I50.9 Heart failure, unspecified
CPT/HCPCS: 99283